=== PATIENT | female | born 1995 | race Caucasian/White ===

== ENCOUNTER 2017-12-16 01:23 | Emergency (ER) | payer OTHER ==
[~2017-12-16] VITALS: Ht 157.5 cm; Wt 77.1 kg
[2017-12-16 01:28] VITALS: Ht 157.5 cm; Wt 77.1 kg
[2017-12-16 01:47] VITALS: BP 143/99
== END 2017-12-16 01:47 | disposition other institution (70) ==
LOC: ED 01:23
DX: Z02.89 Encounter for other administrative examinations (principal)